=== PATIENT | female | born 1965 | race Caucasian/White ===

== ENCOUNTER 2017-04-01 19:09 | Observation (INO) ==
[2017-04-01] MEDS ORDERED: Aspirin 81 MG TAB.CHEW PO ONE (19:30)
[2017-04-01] MEDS ORDERED: Ondansetron 4 MG/2 ML VIAL IVP ONE (19:30)
--- NOTE | 2017-04-01 19:33 | Emergency Department Note ---
Disposition Clinical Impression: Chest pain Qualifiers: Chest pain type: unspecified Qualified Code(s): R07.9 - Chest pain, unspecified Acute pancreatitis Qualifiers: Pancreatitis type: unspecified pancreatitis type Acute pancreatitis complication: unspecified Qualified Code(s): K85.90 - Acute pancreatitis without necrosis or infection, unspecified Disposition: Admitted As Inpatient Condition: Good Time of Disposition: 02:02 Chest Pain HPI - General Chief Complaint: ED Chest Pain Stated Complaint: Chest pain, "don't feel good" Time Seen by Provider: 04/01/17 19:14 Source: patient, EMS Mode of arrival: EMS Limitations: no limitations Vital Signs Reviewed: Yes Nursing Notes Reviewed: Yes - History of Present Illness HPI Narrative: 52-year-old female former smoker, hypertension, hyperlipidemia, diabetes presents with chest pain. Pain is sharp in the midsternum radiating to the left chest occurring at rest. This occurred around 1700. Nothing makes a better or worse. Some associated shortness of breath and nausea no vomiting or diaphoresis. No history of pain before. No history of cardiac ischemic disease. Family history of a father myocardial infarction age 48. No history of cancer, blood clots, recent travel, hospitalization or surgeries. History of cholecystectomy several years ago. Chest pain workup initiated. No recent alcohol use. Severity scale (1-10): 9 - Related Data Home Medications Medication Instructions Recorded Confirmed Atorvastatin [Lipitor] 40 mg PO HS 06/11/16 06/12/16 Citalopram [CeleXA] 20 mg PO DAILY 06/11/16 06/12/16 Fenofibrate [Lofibra] 160 mg PO DAILY 06/11/16 06/12/16 Lisinopril [Zestril] 5 mg PO DAILY 06/11/16 06/12/16 Omeprazole 20 mg PO DAILY 06/11/16 06/12/16 Sitagliptin Phosphate [Januvia] 50 mg PO DAILY 06/11/16 06/12/16 cloNIDine HCl [CloNIDine HCl] 0.1 mg PO BID 06/11/16 06/12/16 metFORMIN [Glucophage] 500 mg PO BIDWM 06/11/16 06/12/16 Previous Rx's Medication Instructions Recorded Tiotropium [Spiriva] 18 mcg IH DAILYR #1 inh 06/13/16 Allergies Allergy/AdvReac Type Severity Reaction Status Date / Time No Known Allergies Allergy Verified 06/12/16 08:09 All systems ED: reviewed and negative except as stated. Review of Systems: As Per HPI Constitutional: Denies: fever, chills Cardiovascular: Reports: chest pain. Denies: palpitations, dyspnea on exertion Respiratory: Denies: cough, dyspnea Gastrointestinal: Reports: abdominal pain, nausea. Denies: vomiting Genitourinary: Denies: urgency, dysuria Musculoskeletal: Denies: back pain, neck pain Integumentary: Denies: rash, abrasion, lesions Neurological: Denies: headache Chest Pain PMH - Past Medical History Medical history: Reports: COPD, diabetes, hyperlipidemia, hypertension Surgical history: Reports: cholecystectomy Psychiatric history: Reports: anxiety - Social History Smoking Status: Former smoker Alcohol use: Reports: none Drug use: Reports: none Physical Exam - General Limitations: no limitations General appearance: alert, in no apparent distress, obese - Head Head exam: atraumatic, normocephalic, normal inspection - Eye Eye exam: Present: normal appearance, PERRL, EOMI. Absent: scleral icterus - ENT ENT exam: normal exam, normal oropharynx, mucous membranes moist - Neck Neck exam: Present: normal inspection, full ROM, trachea midline - Chest Chest inspection: Present: normal inspection, symmetric chest wall rise, tenderness (midsternum, epigastric) - Respiratory Respiratory exam: Present: normal lung sounds bilaterally. Absent: respiratory distress, wheezes - Cardiovascular Cardiovascular exam: Present: regular rate, normal rhythm, normal heart sounds - Abdominal Exam Abdominal exam: Present: soft, tenderness, normal bowel sounds. Absent: Non- Tender, distention, guarding, rebound, rigidity, Caceres's sign, Rovsing's sign, tenderness at McBurney's Point Abdominal tenderness: Present: epigastrium, mild - Extremities Exam Extremities exam: Present: normal inspection, full ROM, normal capillary refill. Absent: tenderness, pedal edema, calf tenderness - Back Exam Back exam: Present: normal inspection, full ROM. Absent: tenderness, CVA tenderness (R), CVA tenderness (L) - Neurological Exam Neurological exam: Present: alert, oriented X3 - Psychiatric Psychiatric exam: Present: normal affect, normal mood - Skin Skin exam: Present: warm, dry, intact, normal color Course - Reevaluation(s) Reevaluation #1: Patient presents with epigastric pain sub sternal radiating to the left chest wall. Associated nausea and shortness of breath. Symptoms start at 1700. Multiple risk factors, no prior cardiac evaluation. Chest pain workup was initiated. Chest x-rays unremarkable. Initial troponin 0. EKG shows poor R wave progression no acute ischemic changes. Unfortunately initial blood work hemolyzed and then subsequent blood draw was highly lipemic. Finally on the 3rd blood draw the lipase was significantly elevated 700. Some mild elevation in her liver enzymes. CT of the abdomen and pelvis was ordered to evaluate pancreatitis as well as abnormal liver enzymes. Those otherwise unremarkable. The common bile duct does measure up to 12 mm she is posts cholecystectomy. She is currently chest pain free after receiving a full dose 324 mg aspirin, morphine and nausea medication. Currently giving her fluid hydration for her acute pancreatitis. She is currently resting very comfortably fallen asleep. She would benefit for further cardiac evaluation as well as pain management for the pancreatitis. HEART score is 4. Impression is chest pain rule out acute coronary syndrome and acute pancreatitis. Patient is in agreement with this plan. Chest X-Ray 04/01/17 19:31 IMPRESSION: No acute process. D/ / Reji Roche MD / Reji Roche MD Interpreting Provider: Reji Roche MD Abdomen/Pelvis CT 04/02/17 00:04 IMPRESSION: 1. Limited study due to lack of IV contrast. 2. Otherwise no acute findings within the abdomen or pelvis. 3. Normal appendix. 4. Status post cholecystectomy. 5. The CBD measures up to 12 mm, which is slightly more prominent from the prior study. While this most likely represent sequela of prior cholecystectomy, correlate with symptoms and labs for possible obstruction. D/ / Manjeet Andrea MD / Manjeet Andrea MD Interpreting Provider: Manjeet Andrea MD Time: 01:57 - Consultations Consultation #1: Spoke with on-call hospitalist jael Liu to admit for acute pancreatitis and chest pain R/O ACS. No further orders at this time Time: 01:56 Vital Signs Temperature 97.6 F 04/01/17 19:10 Pulse Rate 63 04/01/17 19:10 Respiratory Rate 16 04/01/17 19:10 Blood Pressure 190/82 04/01/17 19:10 O2 Sat by Pulse Oximetry 98 04/01/17 19:10 Temperature 97.6 F 04/01/17 19:10 Pulse Rate 60 04/02/17 01:49 Respiratory Rate 16 04/02/17 02:15 Blood Pressure 151/87 04/02/17 02:15 O2 Sat by Pulse Oximetry 99 04/02/17 01:49 Oxygen Delivery Oxygen Delivery Nasal Cannula Chest Pain - Medical Records Medical records reviewed: Yes I reviewed the patient's medical records. - Lab Data Lab results reviewed: Yes I reviewed the patient's lab results. Result diagrams: 04/01/17 19:55 04/01/17 22:56 Lab Results 04/01/17 04/01/17 04/01/17 Range/Units 19:55 19:55 19:55 WBC 14.6 H (4.3-11.1) K/mcL RBC 5.52 H (3.82-4.97) M/mcL Hgb 16.8 H (11.5-15.4) g/dL Hct 47.6 H (35.3-44.9) % MCV 86.2 (83.0-100.0) fL MCH 30.4 (28.0-33.3) pg MCHC 35.3 (31.6-35.5) g/dL RDW 14.5 (11.5-14.5) % Plt Count 314 (140-400) K/mcL MPV 9.7 (9.4-12.4) fL Immature Gran % 0.8 (0-4) % Seg Neutrophils % 74.2 % Lymphocytes % 18.4 % Monocytes % 4.5 % Eosinophils % 1.4 % Basophils % 0.7 % Neutrophils # 10.8 H (1.6-8.9) K/mcL Lymphocytes # 2.7 (0.6-4.6) K/mcL Monocytes # 0.7 (0.0-1.3) K/mcL Eosinophils # 0.2 (0.0-0.6) K/mcL Basophils # 0.1 (0.0-0.2) K/mcL Sodium (136-145) mEq/L Potassium (3.5-4.5) mEq/L Chloride (98-109) mEq/L Carbon Dioxide (19-29) mEq/L BUN (7-20) mg/dL Creatinine (0.57-1.11) mg/dL Est GFR ( Amer) (> 60) Est GFR (Non-Af Amer) (> 60) BUN/Creatinine Ratio (6-26) Glucose (70-99) mg/dL Calculated Osmolality (280-300) Calcium (8.6-10.8) mg/dL Total Bilirubin (0.2-1.2) mg/dL Direct Bilirubin (0.0-0.5) mg/dL Indirect Bilirubin (0.0-1.2) mg/dL AST (5-34) Units/L ALT (0-55) Units/L Alkaline Phosphatase (38-126) Units/L Troponin I 0.00 (0-0.03) ng/mL Serum Total Protein (6.0-8.3) g/dL Albumin (3.5-5.0) g/dL Globulin (2.4-3.5) g/dL Albumin/Globulin Ratio (1.1-2.2) Lipase (8-78) Units/L Specimen Rejected Hemolyzed 04/01/17 Range/Units 22:56 WBC (4.3-11.1) K/mcL RBC (3.82-4.97) M/mcL Hgb (11.5-15.4) g/dL Hct (35.3-44.9) % MCV (83.0-100.0) fL MCH (28.0-33.3) pg MCHC (31.6-35.5) g/dL RDW (11.5-14.5) % Plt Count (140-400) K/mcL MPV (9.4-12.4) fL Immature Gran % (0-4) % Seg Neutrophils % % Lymphocytes % % Monocytes % % Eosinophils % % Basophils % % Neutrophils # (1.6-8.9) K/mcL Lymphocytes # (0.6-4.6) K/mcL Monocytes # (0.0-1.3) K/mcL Eosinophils # (0.0-0.6) K/mcL Basophils # (0.0-0.2) K/mcL Sodium 143 (136-145) mEq/L Potassium 4.8 H (3.5-4.5) mEq/L Chloride 103 (98-109) mEq/L Carbon Dioxide 26 (19-29) mEq/L BUN 18 (7-20) mg/dL Creatinine 0.78 (0.57-1.11) mg/dL Est GFR ( Amer) > 60 (> 60) Est GFR (Non-Af Amer) > 60 (> 60) BUN/Creatinine Ratio 23 (6-26) Glucose 217 H (70-99) mg/dL Calculated Osmolality 304 H (280-300) Calcium 8.8 (8.6-10.8) mg/dL Total Bilirubin < 0.4 (0.2-1.2) mg/dL Direct Bilirubin < 0.1 (0.0-0.5) mg/dL Indirect Bilirubin 0.3 (0.0-1.2) mg/dL AST 170 H (5-34) Units/L ALT 97 H (0-55) Units/L Alkaline Phosphatase 131 H (38-126) Units/L Troponin I (0-0.03) ng/mL Serum Total Protein 7.1 (6.0-8.3) g/dL Albumin 3.8 (3.5-5.0) g/dL Globulin 3.3 (2.4-3.5) g/dL Albumin/Globulin Ratio 1.2 (1.1-2.2) Lipase 708 H (8-78) Units/L Specimen Rejected - Radiology Data Radiology results reviewed: Yes I reviewed the patient's radiology results. Chest X-Ray 04/01/17 19:31 IMPRESSION: No acute process. D/ / Reji Roche MD / Reji Roche MD Interpreting Provider: Reji Roche MD Abdomen/Pelvis CT 04/02/17 00:04 IMPRESSION: 1. Limited study due to lack of IV contrast. 2. Otherwise no acute findings within the abdomen or pelvis. 3. Normal appendix. 4. Status post cholecystectomy. 5. The CBD measures up to 12 mm, which is slightly more prominent from the prior study. While this most likely represent sequela of prior cholecystectomy, correlate with symptoms and labs for possible obstruction. D/ / Manjeet Andrea MD / Manjeet Andrea MD Interpreting Provider: Manjeet Andrea MD - EKG Data EKG attestation: Yes I reviewed and interpreted this EKG. EKG results narrative: EKG performed 1911 sinus bradycardia 53 bpm CA interval 141, normal axis, poor R wave progression, no ST elevations or depression. Intervals are within normal limits. Compared to old EKG performed 06/11/2016 shows sinus bradycardia with consistent findings. No acute ischemic changes. Heart Score - Score History: Slightly Suspicious EKG: Non Specific repolarisation Disturbance Age: 45-65 Risk Factors: Equal/Greater than 3 risk factor or history of atherosclerotic disease Troponin: Less than normal limit HEART Score Total: 4 Attestation Statement - Attestation Attestation: I personally interviewed and examined this patient and my medical decision- making was reviewed with the Resident Physician, Dr. Saucedo. I agree with the documented findings, disposition and treatment plan as described except to the extent set forth below. Patient is a 52-year-old white female with a history of hypertension hyperlipidemia who presents to the emergency department today complaining of epigastric pain and substernal chest pain that radiates around to her left lower chest and left upper quadrant which is severe in nature and began about 4 hours prior to arrival to the ED. Patient states she got hot and sweaty when this pain began was feeling very nauseated but denies any vomiting. Patient complains the pain is 8/10 in severity. Patient is hemodynamically stable with elevated blood pressure on arrival. Patient denies any back discomfort, no shortness of breath, no diaphoresis on arrival, no bowel changes and no other associated symptoms. Patient was placed on quality assurance monitor chassis continuous pulse ox IV saline well was established and labs were drawn and sent she was administered aspirin EKG was obtained. EKG showed a sinus bradycardia at 53 bpm with poor R-wave progression across the anterior leads. This was unchanged from prior EKG that was in the system. Patient had improvement of her symptoms following initial medication administration. She ultimately was pain-free and resting comfortably. There is a significant delay in her lab evaluation we initially got her CBC and troponin back which were both within normal limits and then the remainder of her labs were significantly delayed. I contacted the lab personally and they stated that the first specimen was hemolyzed. They state the second and third specimens that were sent were an inadequate quantity of blood to be able to run the lab work. And a fourth specimen had to be sent for running. This caused a significant delay in her care in the ED but she was resting comfortably and remained hemodynamically stable. When speaking with a cardiac cath lab radiology technologist for Center lab specimen was extremely lipemic and I was concerned with that finding that this possibly could be due to pancreatitis. Finally the we did get lab confirmation and she has a lipase of 708 which I was suspicious of due to her lipemic sample Due to her extremely elevated lipase as well as elevated liver enzymes in alkaline phosphatase, we will send her for CT of the abdomen and pelvis. We have initiated IV fluids and currently patient is resting more comfortably at this time. The plan will be to admit the patient to the hospital for acute pancreatitis I do feel with her cardiac risk factors her troponin should be repeated as well and we want to ensure there is no surgical complication in regards to her epigastric pain and pancreatitis. CT was negative for any pseudocyst or pancreatic obligations. Case was discussed with the hospitalist and patient admitted for acute pancreatitis as well as chest pain.
[2017-04-01] MEDS ORDERED: *HR* Morphine 2 MG/ML SYRINGE IVP ONE (19:34)
[2017-04-01 20:10] LABS: Basophils # 0.1 K/mcL (0.0-0.2); Basophils % 0.7 %; Eosinophils # 0.2 K/mcL (0.0-0.6); Eosinophils % 1.4 %; Hematocrit 47.6 % (35.3-44.9); Hemoglobin 16.8 g/dL (11.5-15.4); Immature Granulocytes % 0.8 % (0-4); Lymphocytes # 2.7 K/mcL (0.6-4.6); Lymphocytes % 18.4 %; Mean Corpuscular HGB Conc 35.3 g/dL (31.6-35.5); Mean Corpuscular Hemoglobin 30.4 pg (28.0-33.3); Mean Corpuscular Volume 86.2 fL (83.0-100.0); Mean Platelet Volume 9.7 fL (9.4-12.4); Monocytes # 0.7 K/mcL (0.0-1.3); Monocytes % 4.5 %; Neutrophils # 10.8 K/mcL (1.6-8.9); Platelet Count 314 K/mcL (140-400); Red Blood Count 5.52 M/mcL (3.82-4.97); Red Cell Distribution Width 14.5 % (11.5-14.5); Segmented Neutrophils % 74.2 %
[2017-04-01] MEDS ORDERED: *HR* Promethazine 25 MG/ML VIAL IVP ONE (20:22)
[2017-04-01 23:52] LABS: eGFR For African Americans > 60 (> 60); eGFR For Non-African Americans > 60 (> 60)
[2017-04-01 23:54] LABS: BUN/Creatinine Ratio 23 (6-26); Bilirubin,Indirect 0.3 mg/dL (0.0-1.2); Osmolality,Calculated 304 (280-300); Sodium 143 mEq/L (136-145)
[2017-04-01 23:55] LABS: Albumin/Globulin Ratio 1.2 (1.1-2.2); Globulin 3.3 g/dL (2.4-3.5)
[2017-04-01 23:57] LABS: Blood Urea Nitrogen 18 mg/dL (7-20); Carbon Dioxide 26 mEq/L (19-29); Chloride 103 mEq/L (98-109); Potassium 4.8 mEq/L (3.5-4.5)
[2017-04-01 23:58] LABS: Alkaline Phosphatase 131 Units/L (38-126); Bilirubin,Direct < 0.1 mg/dL (0.0-0.5); Bilirubin,Total < 0.4 mg/dL (0.2-1.2); Calcium 8.8 mg/dL (8.6-10.8); Glucose 217 mg/dL (70-99)
[2017-04-01 23:59] LABS: Alanine Aminotransferase 97 Units/L (0-55); Albumin 3.8 g/dL (3.5-5.0); Aspartate Amino Transferase 170 Units/L (5-34); Lipase 708 Units/L (8-78); Total Protein 7.1 g/dL (6.0-8.3)
[2017-04-02] MEDS ORDERED: 0.9 % Sodium Chloride 1,000 ML IVC ONE (00:04)
[2017-04-02] MEDS ORDERED: Ondansetron 4 MG/2 ML VIAL IVP PRN (04:39)
[2017-04-02] MEDS ORDERED: *HR* Morphine 2 MG/ML SYRINGE IVP PRN (04:39)
[2017-04-02] MEDS ORDERED: Naloxone 0.4 MG/ML INJ IVP PRN (04:39)
[2017-04-02] MEDS ORDERED: 0.9 % Sodium Chloride 1,000 ML IVC SCH (04:45)
[2017-04-02] MEDS ORDERED: D5% in Water 1,000 ML IVC PRN ×2 (05:05→17:42)
[2017-04-02] MEDS ORDERED: *HR* Dextrose 50 % in Water (Syg) 50 ML SYRINGE IVP PRN (05:05)
[2017-04-02] MEDS ORDERED: Dextrose Gel 15 GM PO PRN ×4 (05:05→17:42)
[2017-04-02] MEDS: Insulin LISPRO 300 UNITS/3 ML VIAL SQ SCH ×3 (05:18→17:15)
--- NOTE | 2017-04-02 05:18 | Internal Med History&Physical ---
Date of Encounter: 04/02/17 Time of Encounter: 03:00 Assessment and Plan (1) Chest pain Current visit: No Status: Acute Patient has chest pain with shortness of breath nausea and diaphoresis. Need to rule out ACS. - Place patient on continuous cardiac monitoring. - We will check 3 sets of troponin. - Echocardiogram. Qualifiers: Chest pain type: precordial pain Qualified Code(s): R07.2 - Precordial pain (2) Diabetes mellitus Current visit: No Status: Chronic We will cover patient with sliding scale Qualifiers: Diabetes mellitus type: type 2 Diabetes mellitus complication status: with hyperglycemia Diabetes mellitus skilled nursing insulin use: without skilled nursing use Qualified Code(s): E11.65 - Type 2 diabetes mellitus with hyperglycemia (3) HTN (hypertension) Current visit: No Status: Chronic Hold the home medications because of nothing by mouth. Hydralazine IV when necessary. Qualifiers: Hypertension type: essential hypertension Qualified Code(s): I10 - Essential (primary) hypertension (4) DVT prophylaxis Current visit: No Status: Acute Heparin subcutaneously (5) Acute pancreatitis Current visit: Yes Status: Acute Pt has elevated lipase. Chest pain located on the left side, possibly caused by pancreatitis. Patient has a history of hypertriglyceridemia, high risk for acute pancreatitis. Patient has cholecystectomy already. - We will place patient on nothing by mouth, IV fluid - Pain management. - Lipid panel Qualifiers: Pancreatitis type: other Acute pancreatitis complication: no infection or necrosis Qualified Code(s): K85.80 - Other acute pancreatitis without necrosis or infection Internal Medicine - H&P: HPI Chief complaint: Chest pain Admitted From: Home Plans for Post Hospital Care: Home History of present illness: Ms. Cruz is a 52 year old female with history of hypertension and diabetes presented to emergency room for chest pain. The patient started from 5 PM this afternoon. Located on left chest, sharp, 5 out of 10, radiated to left chest wall. The pain lasted 2-3 hours and resolved spontaneously. Patient complaining of shortness of breath, nausea, vomiting. The vomiting is white fluid, no blood in it. Patient also had diaphoresis. In emergency room, EKG and chest x-ray is unremarkable, however patient was found elevated lipase. Patient was admitted as chest pain rule out ACS and acute pancreatitis.. I have discussed the CODE STATUS with patient. She is full code. Past Med Surg Social Fam HX - Past Medical History Medical history: COPD, diabetes, hyperlipidemia, hypertension Psychiatric history: anxiety - Past Surgical History Surgical History: cholecystectomy - Social History Smoking Status: Former smoker Alcohol use: none Drug use: none - Family History Mother Hx Family Cancer: Yes Sister Hx Family Cancer: Yes Father Living Status: Hx Family Cardiac Disorders: Yes (heart attack) Internal Medicine - H&P: Meds Atorvastatin [Lipitor] 40 mg PO HS 06/11/16 [History] Citalopram [CeleXA] 20 mg PO DAILY 06/11/16 [History] Fenofibrate [Lofibra] 160 mg PO DAILY 06/11/16 [History] Lisinopril [Zestril] 5 mg PO DAILY 06/11/16 [History] Omeprazole 20 mg PO DAILY 06/11/16 [History] Sitagliptin Phosphate [Januvia] 50 mg PO DAILY 06/11/16 [History] cloNIDine HCl [CloNIDine HCl] 0.1 mg PO BID 06/11/16 [History] metFORMIN [Glucophage] 500 mg PO BIDWM 06/11/16 [History] Tiotropium [Spiriva] 18 mcg IH DAILYR #1 inh 06/13/16 [Rx] 3 Allergy/AdvReac Type Severity Reaction Status Date / Time No Known Allergies Allergy Verified 06/12/16 08:09 All Systems PM: A 10-system review of systems was performed and is negative for pertinent findings except as documented above in the HPI. - Constitutional Vitals: Temp Pulse Resp BP Pulse Ox 97.6 F 64 12 148/86 95 04/02/17 02:30 04/02/17 02:30 04/02/17 02:30 04/02/17 02:30 04/02/17 02:30 General appearance: Present: A&O X 3, no acute distress, answers questions appropriately - Head Head exam: Present: atraumatic, normocephalic - Eye Eye exam: Present: PERRL, conjuntiva pink, sclera anicteric Pupils: Present: PERRL - Neck Neck exam general surgery: Present: supple, trachea midline. Absent: lymphadenopathy - Respiratory Respiratory exam: Present: CTAB. Absent: accessory muscle use, rales, rhonchi, wheezes - Cardiovascular Cardiovascular exam: Present: RRR, +S1, +S2. Absent: diastolic murmur, gallop, rubs, systolic murmur - GI/Abdominal GI/Abdominal exam: Present: normal bowel sounds, soft, no peritoneal signs. Absent: distended, tenderness - Extremities Exam Extremities exam: Present: warm, radial pulses palpable and symmetrical. Absent : calf tenderness, cyanotic, pedal edema - Neurological Exam Neurological exam: Present: CN II-XII intact, oriented X3, no focal deficits. Absent: pronater drift, facial droop, speech deficit - Skin Skin exam: Present: dry, intact Internal Med - H&P Results - Labs CBC & Chem 7: 04/01/17 19:55 04/01/17 22:56 - EKG Data -: EKG Interpreted by Myself EKG shows normal: sinus rhythm Rate: normal
--- NOTE | 2017-04-02 11:54 | Electrocardiograph Report ---
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
--- NOTE | 2017-04-02 14:42 | Internal Med Progress Note ---
Date of Encounter: 04/02/17 Time of Encounter: 09:30 - Assessment and plan (1) Acute pancreatitis Current Visit: Yes Status: Acute Assessment and plan: Unclear etiology at this time. Lipid profile pending, she is a nondrinker. Patient denies pain at this time. Started on clears. Lipase 708 with mild transaminitis. Bilirubin normal. Will trend and advance her diet tomorrow if trending down. Abdominal CT unremarkable other than possibly increased size of common bile duct. On examination, abdomen is soft and nontender. ITS Impressions Abdomen/Pelvis CT 04/02/17 00:04 IMPRESSION: 1. Limited study due to lack of IV contrast. 2. Otherwise no acute findings within the abdomen or pelvis. 3. Normal appendix. 4. Status post cholecystectomy. 5. The CBD measures up to 12 mm, which is slightly more prominent from the prior study. While this most likely represents sequela of prior cholecystectomy, correlate with symptoms and labs for possible obstruction. D/ / 04/02/2017 07:21:10 Manjeet Andrea MD / syed Interpreting Provider: Manjeet Andrea MD (2) Chest pain Current Visit: Yes Status: Ruled-out Assessment and plan: Patient has denied chest pain or shortness of breath since admission. Troponins negative 3. Chest x-ray negative. Echocardiogram pending. Low suspicion for acute coronary syndrome. ITS Impressions Chest X-Ray 04/01/17 19:31 IMPRESSION: No acute process. D/ / Reji Roche MD / Reji Roche MD Interpreting Provider: Reji Roche MD (3) Anxiety Current Visit: No Status: Chronic Assessment and plan: Mood and affect stable (4) COPD (chronic obstructive pulmonary disease) Current Visit: No Status: Chronic Assessment and plan: No acute exacerbation. Patient on room air and denies shortness of breath above her norm. She is a former smoker. Qualifiers: COPD type: chronic bronchitis Chronic bronchitis type: simple Qualified Code(s): J41.0 - Simple chronic bronchitis (5) Diabetes mellitus Current Visit: No Status: Chronic Assessment and plan: Uncontrolled with an A1c last month of 10.7%. Continue sliding scale while admitted. Patient appears to have relatively reduced knowledge base regarding her medical conditions. We will continue to educate what she is admitted. (6) HTN (hypertension) Current Visit: No Status: Chronic Assessment and plan: Controlled, will continue to trend and adjust medications as indicated. (7) Hypertriglyceridemia Current Visit: No Status: Chronic Assessment and plan: Updated lipid profile pending. Triglyceride count on 02/20/17 1037 which could be contributing to pancreatitis. Educated patient on low-cholesterol diet. (8) Dyslipidemia Current Visit: No Status: Chronic (9) DVT prophylaxis Current Visit: No Status: Acute Assessment and plan: Subcutaneous heparin ordered - Subjective Interval history: Patient seen and examined. On examination, patient is sitting upright in her bed. Patient denies pain or shortness of breath at this time. She states she is hungry and thirsty. - Constitutional Vitals: Temp Pulse Resp BP Pulse Ox 98.1 F 71 16 127/75 92 04/02/17 11:42 04/02/17 11:42 04/02/17 11:42 04/02/17 11:42 04/02/17 11:42 General appearance: Present: A&O X 3, pleasant, no acute distress, obese, answers questions appropriately - Head Head exam: Present: atraumatic, normocephalic - Eye Eye exam: Present: PERRL, conjuntiva pink, sclera anicteric Pupils: Present: PERRL - Neck Neck exam general surgery: Present: supple, trachea midline. Absent: lymphadenopathy - Respiratory Respiratory exam: Present: decreased breath sounds. Absent: accessory muscle use, rales, respiratory distress, rhonchi, wheezes - Cardiovascular Cardiovascular exam: Present: RRR, +S1, +S2. Absent: diastolic murmur, gallop, rubs, systolic murmur - GI/Abdominal GI/Abdominal exam: Present: normal bowel sounds, soft, no peritoneal signs. Absent: distended, tenderness - Extremities Exam Extremities exam: Present: warm, radial pulses palpable and symmetrical. Absent : calf tenderness, cyanotic, pedal edema - Neurological Exam Neurological exam: Present: alert, CN II-XII intact, oriented X3, no focal deficits, strengths equal and symetr throughout. Absent: pronater drift, facial droop, speech deficit - Skin Skin exam: Present: dry, intact, pallor, warm Internal Medicine: Result - Labs CBC & Chem 7: 04/01/17 19:55 04/01/17 22:56 Labs: Cardiac Enzymes 04/02/17 04/02/17 Range/Units 05:17 12:03 Troponin I 0.00 0.00 (0-0.03) ng/mL Consult Discharge Plan - Plan Referrals: Celio Baldwin MD [Primary Care Provider] -
[2017-04-02] MEDS: Tiotropium 18 MCG inhalation IH SCH (16:11)
[2017-04-02] MEDS: 0.9 % Sodium Chloride 1,000 ML IVC SCH (17:12)
[2017-04-02] MEDS: cloNIDine HCl 0.1 MG TABLET PO SCH ×2 (17:12→21:28)
[2017-04-02] MEDS: *HR* Heparin 5,000 UNIT/ML VIAL SQ SCH (17:12)
[2017-04-02] MEDS ORDERED: Insulin LISPRO 300 UNITS/3 ML VIAL SQ SCH (21:00)
[2017-04-03] MEDS: *HR* Heparin 5,000 UNIT/ML VIAL SQ SCH (05:38)
[2017-04-03] MEDS: 0.9 % Sodium Chloride 1,000 ML IVC SCH ×2 (05:38→12:35)
[2017-04-03 07:18] LABS: Basophils # 0.1 K/mcL (0.0-0.2); Basophils % 0.6 %; Eosinophils # 0.3 K/mcL (0.0-0.6); Eosinophils % 3.2 %; Hematocrit 42.4 % (35.3-44.9); Immature Granulocytes % 0.2 % (0-4); Lymphocytes # 2.1 K/mcL (0.6-4.6); Lymphocytes % 25.7 %; Mean Corpuscular HGB Conc 32.5 g/dL (31.6-35.5); Mean Corpuscular Hemoglobin 28.5 pg (28.0-33.3); Mean Corpuscular Volume 87.4 fL (83.0-100.0); Mean Platelet Volume 10.3 fL (9.4-12.4); Monocytes # 0.5 K/mcL (0.0-1.3); Monocytes % 5.9 %; Neutrophils # 5.2 K/mcL (1.6-8.9); Platelet Count 204 K/mcL (140-400); Red Blood Count 4.85 M/mcL (3.82-4.97); Red Cell Distribution Width 14.8 % (11.5-14.5); Segmented Neutrophils % 64.4 %
[2017-04-03 07:24] LABS: Hemoglobin 13.8 g/dL (11.5-15.4)
[2017-04-03 07:36] LABS: Alanine Aminotransferase 88 Units/L (0-55); Albumin 2.9 g/dL (3.5-5.0); Albumin/Globulin Ratio 0.9 (1.1-2.2); Alkaline Phosphatase 122 Units/L (38-126); Aspartate Amino Transferase 27 Units/L (5-34); BUN/Creatinine Ratio 10 (6-26); Bilirubin,Direct 0.1 mg/dL (0.0-0.5); Bilirubin,Indirect 0.2 mg/dL (0.0-1.2); Bilirubin,Total 0.3 mg/dL (0.2-1.2); Blood Urea Nitrogen 6 mg/dL (7-20); Carbon Dioxide 20 mEq/L (19-29); Chol/HDL Ratio 18.2 (0-4.9); Cholesterol 364 mg/dL (< 200); Globulin 3.3 g/dL (2.4-3.5); Glucose 149 mg/dL (70-99); HDL Cholesterol 20 mg/dL (40-59); Lipase 33 Units/L (8-78); Magnesium 1.8 mg/dL (1.6-2.6); Osmolality,Calculated 288 (280-300); Potassium 3.5 mEq/L (3.5-4.5); Total Protein 6.2 g/dL (6.0-8.3); eGFR For African Americans > 60 (> 60); eGFR For Non-African Americans > 60 (> 60)
[2017-04-03 07:37] LABS: Calcium 8.7 mg/dL (8.6-10.8); Chloride 106 mEq/L (98-109); Sodium 139 mEq/L (136-145)
[2017-04-03 07:38] LABS: Triglycerides 1577 mg/dL (< 150)
[2017-04-03] MEDS: cloNIDine HCl 0.1 MG TABLET PO SCH (09:14)
[2017-04-03] MEDS: Insulin LISPRO 300 UNITS/3 ML VIAL SQ SCH ×2 (09:16→12:35)
[2017-04-03] MEDS: Tiotropium 18 MCG inhalation IH SCH (10:58)
[2017-04-03 12:02] VITALS: BP 104/53
--- NOTE | 2017-04-03 15:07 | Discharge Summary ---
Date of Encounter: 04/03/17 Time of Encounter: 13:45 - Discharge Diagnosis (1) Acute pancreatitis Priority: Secondary Status: Acute Comments: Triglycerides 1557 patient denies pain. Area is not tender to palpation. Lipase is elevated dated, has returned within normal limits, 33 today. AST was 170, has returned to normal. ALT is 97, has decreased to 88. Qualifiers: Pancreatitis type: other Acute pancreatitis complication: no infection or necrosis Qualified Code(s): K85.80 - Other acute pancreatitis without necrosis or infection (2) Chest pain Priority: Secondary Status: Ruled-out Comments: Patient reports that she was standing at home washing dishes at onset of chest pain that began with cold sweats, progress to hot and sweaty, she reports shortness of breath, chest pain on the left side with radiation to the right side. It then settled in midsternal area to with radiation to the back. She denies nausea or vomiting. She says that she feels very strongly that this was an anxiety attack, however she was admitted for chest pain. Echo cardiogram showed LVEF of 6065% with mild concentric LV hypertrophy, indeterminate diastolic function. EKG on admission was sinus bradycardia with a rate of 53, appearing over 141, QRS 96 and QTC 443. Troponins negative. A 10 degree with the patient that this may have been anxiety related. We will send her home with a small amount of Vistaril for when necessary anxiety. She will continue Celexa. Qualifiers: Chest pain type: unspecified Qualified Code(s): R07.9 - Chest pain, unspecified (3) DVT prophylaxis Priority: Secondary Status: Acute Comments: Heparin subcutaneous. (4) Anxiety Priority: Secondary Status: Chronic Comments: Plan as above. (5) COPD (chronic obstructive pulmonary disease) Priority: Secondary Status: Chronic Comments: No acute exacerbation. Patient is not requiring supple in all oxygen. Lungs are clear in anterior luther other than faint expiratory wheezing heard in right base. Patient has no cough above baseline. Qualifiers: COPD type: chronic bronchitis Chronic bronchitis type: simple Qualified Code(s): J41.0 - Simple chronic bronchitis (6) Diabetes mellitus Priority: Secondary Status: Chronic Comments: A1c was 10.7 in February. Continue home medications and follow-up with primary care. Qualifiers: Diabetes mellitus type: type 2 Diabetes mellitus complication status: with hyperglycemia Diabetes mellitus intermediate insulin use: without exterminator termite use Qualified Code(s): E11.65 - Type 2 diabetes mellitus with hyperglycemia (7) HTN (hypertension) Priority: Secondary Status: Chronic Comments: Continue home medications. Qualifiers: Hypertension type: essential hypertension Qualified Code(s): I10 - Essential (primary) hypertension (8) Obesity (BMI 30-39.9) Priority: Secondary Status: Chronic Comments: Chronic. Lifestyle changes. - Discharge Medications Prescriptions: hydrOXYzine pamoate [HydrOXYzine Pamoate] 25 mg PO DAILY PRN #10 capsule PRN Reason: Anxiety Home Medications: Citalopram [CeleXA] 20 mg PO DAILY 06/11/16 [History] Fenofibrate [Lofibra] 160 mg PO DAILY 06/11/16 [History] Lisinopril [Zestril] 5 mg PO DAILY 06/11/16 [History] Omeprazole 20 mg PO DAILY 06/11/16 [History] Sitagliptin Phosphate [Januvia] 50 mg PO DAILY 06/11/16 [History] cloNIDine HCl [CloNIDine HCl] 0.1 mg PO BID 06/11/16 [History] metFORMIN [Glucophage] 1,000 mg PO BIDWM 06/11/16 [History] Tiotropium [Spiriva] 18 mcg IH DAILYR #1 inh 06/13/16 [Rx] Atorvastatin Calcium [Lipitor] 80 mg PO HS 04/02/17 [History] Empagliflozin [Jardiance] 10 mg PO DAILY 04/02/17 [History] Liraglutide [Victoza 3-Keith] 1.2 mg SQ DAILY 04/02/17 [History] hydrOXYzine pamoate [HydrOXYzine Pamoate] 25 mg PO DAILY PRN #10 capsule [Rx] Allergies/Adverse Reactions: 3 Allergy/AdvReac Type Severity Reaction Status Date / Time No Known Allergies Allergy Verified 06/12/16 08:09 Procedures/tests Complete & Pending: Procedures Performed prior 72 hours Category Date Time Status EV echocardiogram Routine Y 04/02/17 04:42 Completed Date of admission: 04/02/17 02:00 Primary care physician: Celio Baldwin MD Discharging clinician: Dalila Isabel Anticipated date of discharge: 04/03/17 - Patient Status Disposition: Home, Self-Care Functional capacity at discharge: independent ambulation Overall status at discharge: patient is back to baseline - Discharge Instructions Follow Up With: Celio Baldwin MD [Primary Care Provider] - Additional Instructions: Follow up with your primary care provider in the next 7-10 days for a follow up visit. REturn to the ER as needed for any other problems or concerns or if your symptoms return or worsen. Take your medications as directed. I have called in a prescription for Hydroxyzine to your pharmacy. Return to your normal activities as tolerated. - Diet and Activity Activity: increase activity as tolerated Diet: diabetic diet, low fat, low cholesterol Hospital course: Ms. Cruz is a 52 year old female with past medical history of COPD, hypertension, smoking, dyslipidemia, anxiety, pancreatitis, and morbid obesity who presented to the emergency department from home for chest pain. Pain began prior to arrival in the admission was located on the left, sharp, 5 out of 10. She said the pain also radiated to the right-sided chest, then settled in mid sternal area with radiation to her back. She does have any nausea, vomiting. She did report shortness of breath. Immediately prior to the event she said she broke out in cold sweats and then became diaphoretic and hot. Patient stress test in June that was negative and echocardiogram today that showed LVEF of 60 is 65% with mild LV hypertrophy and indeterminate diastolic function. Troponins were negative, chest x-ray was negative, abdomen and pelvis CT showed no acute findings, the CBD measures up to 12 mm which is slightly more prominent than prior study. Clinical correlation was recommended. Patient has no abdominal pain, the area is not tender to palpation. She feels strongly that her chest pain was an anxiety attack. She will be sent home with prescription for hydroxyzine 25 mg daily as needed for anxiety. Patient was admitted with acute pancreatitis. She denied any pain and was able to tolerate foods. Lipase was 708 with mild transaminitis. Triglycerides were 1577, cholesterol 364. Patient is on the max dose for fenofibrate and takes fish oil 1000 mg daily, I have encouraged her to implement lifestyle modifications and diet modifications and increase the fish oil to twice daily. Lipase has returned to normal, AST has returned to normal, ALT remains mildly elevated at 88, however this is lower than it was on admission 97. She also has a mild leukocytosis on arrival, that too has returned to baseline. Patient and I discussed lifestyle modifications including exercise, weight loss, diet changes. She agrees, however points out with every recommendation that she already does all of that. Patient will need to follow with her primary care physician for very close monitoring after discharge. Patient's blood pressures been well-controlled, labs are within normal limits. Patient is ready for discharge. - Time Spent with Patient Total time spent providing and/or coordinating discharge services: Less than 30 minutes - Constitutional Vitals: Temp Pulse Resp BP Pulse Ox 98.1 F 55 16 104/53 96 04/03/17 12:01 04/03/17 12:01 04/03/17 12:01 04/03/17 12:01 04/03/17 12:01 General appearance: Present: A&O X 3, pleasant, no acute distress, obese, answers questions appropriately - Head Head exam: Present: normal inspection - Eye Eye exam: Present: normal appearance, conjuntiva pink - ENT ENT exam: Present: mucous membranes moist, normal exam, normal external ear exam - Neck Neck exam general surgery: Present: normal inspection. Absent: lymphadenopathy , tenderness - Respiratory Respiratory exam: Present: CTAB, wheezes. Absent: chest wall tenderness, decreased breath sounds, rales, respiratory distress, rhonchi, stridor - Cardiovascular Cardiovascular exam: Present: RRR, +S1, +S2. Absent: clicks, diastolic murmur, gallop, systolic murmur - GI/Abdominal GI/Abdominal exam: Present: distended, normal bowel sounds, soft. Absent: hernia, hepatomegaly, tenderness - Extremities Exam Extremities exam: Present: normal capillary refill, normal inspection, warm, radial pulses palpable and symmetrical. Absent: pedal edema, tenderness - Neurological Exam Neurological exam: Present: alert, oriented X3, no focal deficits. Absent: altered, facial droop, speech deficit - Skin Skin exam: Present: dry, intact, normal color, warm. Absent: rash
== END 2017-04-03 15:45 | disposition home or self-care (01) ==
LOC: 3BNU 19:09 → EMEROO 19:09 → 3BNU 04-02 02:18
PROVIDERS: ADMIT Internal Medicine; ATTEND Nurse Practitioner Family